=== PATIENT | male | born 1970 | race African-American/Black ===

== ENCOUNTER 2022-04-29 14:15 | Emergency (ER) | payer OTHER | END 2022-04-29 16:32 | disposition home or self-care (01) | LOC: MW.ED 14:15 | DX: S67.22XA Crushing injury of left hand, initial encounter (principal); W22.09XA Striking against other stationary object, initial encounter; Y99.0 Civilian activity done for income or pay | CPT/HCPCS: 73130-26-LT; 73130-LT; 99283 ==

== ENCOUNTER 2022-06-10 19:23 | Emergency (ER) | payer OTHER ==
[2022-06-10] MEDS ORDERED: Ibuprofen 600 MG Tab PO ONE (19:38)
== END 2022-06-10 19:55 | disposition home or self-care (01) ==
LOC: MW.ED 19:23
DX: G89.29 Other chronic pain (principal); M79.642 Pain in left hand; I10 Essential (primary) hypertension; Z79.899 Other long term (current) drug therapy
CPT/HCPCS: 99283; A9270

== ENCOUNTER 2022-07-19 16:20 | Emergency (ER) | payer BC, OTHER ==
[2022-07-19] MEDS ORDERED: Sodium Chloride 0.9% 10 ML Syringe FLUSH PRN (17:06)
[2022-07-19] MEDS ORDERED: Sodium Chloride 0.9% 2.5 ML Syringe FLUSH PRN (17:06)
[2022-07-19 17:11] LABS: APPEARANCE,URINE CLEAR; BILIRUBIN,URINE NEGATIVE (NEGATIVE); COLOR,URINE YELLOW; GLUCOSE,URINE NEGATIVE (NEGATIVE); KETONES,URINE NEGATIVE (NEGATIVE); LEUKOCYTE ESTERASE,URINE NEGATIVE (NEGATIVE); NITRITE,URINE NEGATIVE (NEGATIVE); OCCULT BLOOD,URINE NEGATIVE (NEGATIVE); PROTEIN,URINE TRACE mg/dL (NEGATIVE); UROBILINOGEN,URINE 0.2 EU/dL (<2.0)
[2022-07-19 17:31] LABS: BACTERIA,URINE FEW (NEGATIVE); EPITHELIAL CELLS,URINE RARE (NONE-FEW); RBC,URINE 0-1 (0-2/HPF); WBC,URINE 0-1 (0-5/HPF)
[2022-07-19 17:39] LABS: BASOPHILS PERCENT AUTO 0.1 % (0.0-1.5); EOSINOPHILS ABSOLUTE AUTO 0.1 K/uL (0.0-0.7); EOSINOPHILS PERCENT AUTO 1.3 % (0.0-7.0); HEMATOCRIT 44.9 % (38.0-50.0); HEMOGLOBIN 14.8 g/dL (13.0-17.0); LYMPHOCYTES ABSOLUTE AUTO 3.5 K/uL (0.6-2.4); LYMPHOCYTES PERCENT AUTO 51.8 % (16.0-40.0); MEAN CORPUSCULAR VOLUME 72.9 fL (80.0-98.0); MONOCYTES ABSOLUTE AUTO 0.5 K/uL (0.0-0.8); MONOCYTES PERCENT AUTO 7.2 % (0.0-15.0); NEUTROPHILS ABSOLUTE AUTO 2.7 K/uL (1.4-5.7); NEUTROPHILS PERCENT AUTO 39.6 % (48.0-80.0); NRBC ABSOLUTE 0 K/uL; PLATELET COUNT,PLT 148 K/uL (150-400); RED BLOOD CELL COUNT 6.16 M/uL (4.50-5.90); WHITE BLOOD CELL COUNT,WBC 6.79 K/uL (4.0-11.0)
[2022-07-19 18:05] LABS: ALBUMIN 3.7 g/dL (3.4-5.0); BILIRUBIN TOTAL 1.3 mg/dL (0.2-1.0); CALCIUM 9.1 mg/dL (8.5-10.1); CARBON DIOXIDE,CO2 27.9 mmol/L (21.0-32.0); CREATININE 1.1 mg/dL (0.8-1.3); EST CRCL DRUG DOSING (CG) 73.44 mL/min; POTASSIUM,K 3.5 mmol/L (3.5-5.1); PROTEIN TOTAL,TP 7.5 g/dL (6.4-8.2)
[2022-07-19] MEDS ORDERED: Ketorolac 30 MG/ML SDV IVPUSH ONE (18:30)
== END 2022-07-19 19:00 | disposition home or self-care (01) ==
LOC: MW.ED 16:20
DX: R10.31 Right lower quadrant pain (principal); I10 Essential (primary) hypertension
CPT/HCPCS: 36415; 74176; 80053; 81001; 85025; 96374; 99284; J1885; J3490